=== PATIENT | male | born 1950 | race Caucasian/White ===

== ENCOUNTER 2018-05-29 16:14 | Emergency (ER) | payer OTHER, MEDICARE ==
[2018-05-29 16:53] VITALS: BP 159/83; PULSE 83; RESP 20; TEMP 98.7; O2SAT 97
== END 2018-05-29 18:44 | disposition home or self-care (01) | DRG 392 ==
LOC: ED 16:14
DX: K57.92 Diverticulitis of intestine, part unspecified, without perforation or abscess without bleeding (principal)
CPT/HCPCS: 74177; 99283; 99284; Q9967